=== PATIENT | male | born 1985 | race African-American/Black ===

== ENCOUNTER 2020-11-20 16:33 | Inpatient (IN) | payer OTHER ==
[~2020-11-20] VITALS: Ht 162.6 cm; Wt 82.3 kg
[2020-11-20] MEDS ORDERED: LOSARTAN 50MG TABLET PO ONE (17:05)
[2020-11-20] MEDS ORDERED: MORPHINE 4 MG/ML 1ML VIAL/SYRINGE (J2270) IV PRN (17:05)
[2020-11-20] MEDS ORDERED: LOSA25TA14 PO (17:59)
[2020-11-20 18:20] LABS: BASO # 0.1 10^3/uL (0.0-0.2); BASO % 0.7 % (0.0-1.0); EOS # 0.3 10^3/uL (0.0-0.5); EOS % 3.6 % (0.0-3.0); HEMATOCRIT 41.3 % (42.0-52.0); HEMOGLOBIN 13.6 g/dl (13.5-17.5); LYMPH # 2.7 10^3/uL (1.5-5.0); LYMPH % 39.2 % (24.0-44.0); MEAN CORPUSCULAR HEMOGLOBIN 29.9 pg (27.0-33.0); MEAN CORPUSCULAR HGB CONC 32.9 g/dl (32.0-36.5); MEAN CORPUSCULAR VOLUME 90.8 fl (80.0-96.0); MONO # 0.6 10^3/uL (0.0-0.8); MONO % 8.2 % (2.0-8.0); NEUTROPHILS # 3.3 10^3/uL (1.5-8.5); NEUTROPHILS % 47.9 % (36.0-66.0); PLATELET COUNT, AUTOMATED 240 10^3/uL (150-450); RED BLOOD COUNT 4.55 10^6/uL (4.30-6.10); WHITE BLOOD COUNT 6.9 10^3/uL (4.0-10.0)
[2020-11-20 19:02] LABS: ALBUMIN 2.7 GM/DL (3.2-5.2); ALT/SGPT 58 U/L (12-78); BILIRUBIN,DIRECT 0.1 MG/DL (0.0-0.2); BILIRUBIN,TOTAL 0.6 MG/DL (0.2-1.0); BLOOD UREA NITROGEN 11 MG/DL (7-18); CALCIUM LEVEL 6.8 MG/DL (8.5-10.1); CARBON DIOXIDE LEVEL 24 MEQ/L (21-32); CHLORIDE LEVEL 117 MEQ/L (98-107); CK-MB VALUE MASS < 1.0 NG/ML (<3.6); CPK CREATINE PHOSPHOKINASE 143 U/L (39-308); CREATININE FOR GFR 0.95 MG/DL (0.70-1.30); FREE T4 1.14 NG/DL (0.76-1.46); GLOMERULAR FILTRATION RATE > 60.0 (>60); GLUCOSE, FASTING 88 MG/DL (70-100); LIPASE 111 U/L (73-393); POTASSIUM SERUM 2.8 MEQ/L (3.5-5.1); SODIUM LEVEL 146 MEQ/L (136-145); THYROID STIMULATING HORMONE 0.566 uIU/ML (0.358-3.740); TOTAL PROTEIN 5.2 GM/DL (6.4-8.2); TROPONIN I < 0.02 NG/ML (< 0.10)
[2020-11-20] MEDS ORDERED: KCL 10MEQ/100ML SWI (KRUN) 10 MEQ in IV 1 EA IV ONE (19:05)
[2020-11-20] MEDS ORDERED: POTASSIUM CHLORIDE 10MEQ SR TABLET PO ONE (19:15)
[2020-11-20] MEDS ORDERED: ISOVUE-370 76% 100ML VIAL As Ordered ONE (19:25)
--- NOTE | 2020-11-20 20:38 | REPVR ---
PROCEDURE INFORMATION: Exam: CTA Chest With Contrast Exam date and time: 11/20/2020 7:38 PM Age: 35 years old Clinical indication: Pain; Angina pectoris; Additional info: Pleuritic chest pain TECHNIQUE: Imaging protocol: Computed tomographic angiography of the chest with contrast. 3D rendering (Not supervised by radiologist): MIP and/or 3D reconstructed images were created by the technologist. Radiation optimization: All CT scans at this facility use at least one of these dose optimization techniques: automated exposure control; mA and/or kV adjustment per patient size (includes targeted exams where dose is matched to clinical indication); or iterative reconstruction. Contrast material: ISOVUE 370; Contrast volume: 100 ml; Contrast route: INTRAVENOUS (IV); COMPARISON: No relevant prior studies available. FINDINGS: Pulmonary arteries: The main pulmonary artery measures 21 mm. No pulmonary embolism is identified. Aorta: The ascending thoracic aorta measures 32 mm. Lungs: Minimal dependent atelectasis in the lower lobes and lingula. Pleural spaces: Unremarkable. No pneumothorax. No pleural effusion. Heart: Unremarkable. No cardiomegaly. No pericardial effusion. Lymph nodes: Unremarkable. No enlarged lymph nodes. Liver: The liver attenuation is 36 Hounsfield units and the spleen is 81 Hounsfield units in the arterial phase. There is some fatty sparing adjacent to the gallbladder fossa. Bones/joints: Unremarkable. No acute fracture. Soft tissues: Unremarkable. IMPRESSION: 1. Probable fatty infiltration of the liver. 2. Otherwise negative CTA chest. No pulmonary embolism is identified. Electronically signed by: Taye Zuniga On 11/20/2020 20:38:23 PM
--- NOTE | 2020-11-20 20:43 | REPVR ---
PROCEDURE INFORMATION: Exam: CT Abdomen And Pelvis With Contrast Exam date and time: 11/20/2020 7:38 PM Age: 35 years old Clinical indication: Abdominal pain; Flank; Left; Additional info: L flank pain TECHNIQUE: Imaging protocol: Computed tomography of the abdomen and pelvis with contrast. Radiation optimization: All CT scans at this facility use at least one of these dose optimization techniques: automated exposure control; mA and/or kV adjustment per patient size (includes targeted exams where dose is matched to clinical indication); or iterative reconstruction. Contrast material: ISOVUE 370; Contrast volume: 100 ml; Contrast route: INTRAVENOUS (IV); COMPARISON: No relevant prior studies available. FINDINGS: Lungs: Minimal dependent atelectasis in the lower lobes and lingula. Liver: The liver attenuation is 42 Hounsfield units and the spleen is 121 Hounsfield units in the arterial phase. There is some fatty sparing adjacent to the gallbladder. Gallbladder and bile ducts: Normal. No calcified stones. No ductal dilation. Pancreas: Normal. No ductal dilation. Spleen: See "Liver" finding. Adrenal glands: Normal. No mass. Kidneys and ureters: Small nonobstructing left renal calculi. There are bilateral renal cysts measuring up to 2.2 cm on the left with a Hounsfield measurement of 16 consistent with simple cysts. No follow-up imaging is recommended. No ureteral calculi and no hydronephrosis. Stomach and bowel: Unremarkable. No obstruction. No mucosal thickening. Appendix: A normal appendix is seen. Intraperitoneal space: Unremarkable. No free air. No significant fluid collection. Vasculature: Unremarkable. No abdominal aortic aneurysm. Lymph nodes: Unremarkable. No enlarged lymph nodes. Urinary bladder: Unremarkable as visualized. Reproductive: Unremarkable as visualized. Bones/joints: Unremarkable. No acute fracture. Soft tissues: Unremarkable. IMPRESSION: 1. Fatty infiltration of the liver. 2. Small nonobstructing left renal calculi. No ureteral calculi are evident and there is no evidence of obstructive uropathy. 3. Otherwise negative CT abdomen/pelvis. COMMENTS: Consistent with the [employer]'s Incidental Findings Committee white paper (J Am Aissatou Radiol 2018): Any incidental renal lesion less than 1 cm or classified as too small to characterize, or any incidental cystic renal lesion characterized as simple-appearing, is likely benign. No follow-up imaging is recommended for these lesions per consensus recommendations based on imaging criteria. Electronically signed by: Taye Zuniga On 11/20/2020 20:42:42 PM
[2020-11-20] MEDS ORDERED: LABETALOL 100MG/20ML VIAL IV STA (21:03)
[2020-11-20] MEDS ORDERED: MOM 30ML SUSPENSION UDC PO PRN (21:25)
[2020-11-20] MEDS ORDERED: DICLOFENAC EPOLAMINE 1.3 % PATCH TOP PRN (21:25)
[2020-11-20] MEDS ORDERED: ACETAMINOPHEN TAB 650MG DOSE (2X325MG) PO PRN (21:25)
[2020-11-20] MEDS ORDERED: MAALOX 30 ML SUSP *UDC PO PRN (21:25)
--- NOTE | 2020-11-20 21:30 | HPEPDOC ---
[facility] Medical History & Physical Date of Admission Nov 20, 2020 Date of Service: Nov 20, 2020 Other Provider [facility] Attending Physician: ANABELA BIRCH MD History and Physical TIME OF SERVICE: 1020PM CHIEF COMPLAINT: flank pain HISTORY OF PRESENT ILLNESS: is a 35 yr old M who suddenly developed 9/10 in severity sharp mid-left upper back pain while walking; the pain is made worse with movement. He has never had this kind of pain before. He came to the ER bc he has a hx of uncontrolled HTN that is being managed by ; he thinks that he has had several tests to determine the cause of his uncontrolled HTN and is currently taking losartan, chlorthalidone and nifedipine. He was told in the past to go to the ER if he develops back pain. He has had transient dyspnea and PINA as well. He denies being under an undue amount of stress, denies drinking more coffee than usual lately (he drinks 1-3 cups daily) and denies taking NSAIDS. REVIEW OF SYSTEMS: 10-point review of systems negative except as listed in HPI PAST MEDICAL/ SURGICAL HISTORY: resistant HTN, DLP, fatty liver, class 1 obesity, resection of wisdom teeth FAMILY HISTORY: DM SOCIAL HISTORY: He is in the , , doesnt smoke, uses alcohol socially and doesnt use recreational drugs. ALLERGIES: Please see below. HOME MEDICATIONS: Please see below. PHYSICAL EXAMINATION: Vital Signs Date Time Temp Pulse Resp B/P (MAP) Pulse Ox O2 Delivery O2 Flow Rate FiO2 11/20/20 16:57 210/127 (154) 11/20/20 17:03 80 11/20/20 18:18 99 11/20/20 18:37 18 Room Air 11/20/20 18:44 98.7 GENERAL APPEARANCE: well-nourished and developed/ slightly anxious HEENT: EOMI / MMM&P CARDIOVASCULAR: RRR/NMRG / no BLE edema LUNGS: CTAB on RA ABDOMEN: contour convex/ soft & NT w palpation / no abdominal bruit audible MUSCULOSKELETAL: NCAT / MARIA x 4 extremities INTEGUMENT: he is not diaphoretic NEUROLOGICAL: / speech not dysarthric PSYCHIATRIC: A&O x 3 / able to understand and follow all commands LABORATORY DATA: IMAGING: CT abd/pelvis IMPRESSION: 1. Fatty infiltration of the liver. 2. Small nonobstructing left renal calculi. No ureteral calculi are evident and there is no evidence of obstructive uropathy. 3. Otherwise negative CT abdomen/pelvis. CTA chest IMPRESSION: 1. Probable fatty infiltration of the liver. 2. Otherwise negative CTA chest. No pulmonary embolism is identified. MICROBIOLOGY: Respiratory panel negative EKG: T wave inversions in the lateral leads ASSESSMENT: is a 35 yr old w a hx of resistant HTN, DLP and obesity who is admitted for management of HTN Urgency, Hypokalemia. PLAN: 1 HTN Urgency -At his baseline he has resistant HTN -Associated symptoms include back pain ? and PINA -Because he also has hypokalemia I suspect he may have Conns syndrome / hyperaldosteronism. -The T wave inversions in the ECG may be due to accelerated HTN -His BP improved to 168/98 after he received 50mg of losartan & 10mg of IV Labetalol Plan: admit to medical floor/ keep on bed rest for now to avoid excessive environmental stimuli / low salt diet / hold Nifedipine and Losartan prior to checking serum plasma aldosterone:renin ratio & start PRN hydralazine (if the aldosterone to renin ratio is abnormal the day time team may consider starting eplerenone (K sparing diuretic which will also help prevent hypokalemia in the future) / we will also check plasma free metanephrines to screen for pheochromocytoma / he can f/u with his PCP for referral for a sleep study / will request records from office prior to ordering a renal duplex 2 Mid-left upper back pain -Possibly 2/2 hypokalemia vs accelerate HTN vs MSK pain -CTA of the chest was neg for dissection Plan: replete K / treat HTN / acetaminophen for pain 3 Hypokalemia -The combination of hypertension with increased renin and aldosterone may point towards a reninoma or renal artery stenosis as the cause of the hypokalemia -The combination of hypertension with low low renin & high aldosterone may point towards primary hyperaldosteronism or secondary hyperaldosteronism as the cause of the hypokalemia Plan: replete K / f/u serum plasma aldosterone:renin ratio 4 Hypomagnesemia 2/2 hypokalemia Plan: replete Mag 5 DLP Plan: atorvastatin 6 Class 1 obesity -complicates care Plan: check A1C to screen for DM DVT px w NAKIA/SCDs Disposition: home after more than 2 midnights stay LATE ENTRY 420AM #SERA I suspect the acute elevation in his BP is a due to the accelerated HTN Plan: we will continue to hold the ARB and HTCZ/ start IVF/ f/u Ulytes and check a renal US Home Medications Scheduled Chlorthalidone (Chlorthalidone) 25 Mg Tablet, 25 MG PO DAILY Losartan Potassium (Losartan Potassium) 100 Mg Tablet, 100 MG PO QHS Nifedipine (Procardia Xl) 30 Mg Tab.er.24, 30 MG PO DAILY Rosuvastatin Calcium (Rosuvastatin Calcium) 10 Mg Tablet, 10 MG PO DAILY Allergies Coded Allergies: No Known Allergies (Unverified , 11/20/20) A-FIB/CHADSVASC A-FIB History Current/History of A-Fib/PAF?: No Current PO Anticoag Therapy: No ANABELA BIRCH MD Nov 20, 2020 21:30
[2020-11-20 21:49] LABS: MAGNESIUM LEVEL 1.4 MG/DL (1.8-2.4)
--- NOTE | 2020-11-20 22:12 | ECGEPIP ---
[facility] - ED Test Date: 2020-11-20 Pat Name: RAN HOPKINS Department: Room: - Gender: Male [employer]ing Machine Operator: COLTON : 1985 Requested By: CATALINO Butler Order Number: [id number] Reading MD: Norberto Yeung Measurements Intervals [place] Rate: 72 P: 31 AR: 148 QRS: 41 QRSD: 74 T: 160 QT: 364 QTc: 398 Interpretive Statements Normal sinus rhythm T wave abnormality, consider lateral ischemia Comparison tracing not on file Electronically Signed on 11-20-2020 22:12:27 EDT by Norberto Yeung
[2020-11-20] MEDS ORDERED: ROSU10TA6 PO (23:11)
[2020-11-20] MEDS ORDERED: LOSA100T50 PO (23:11)
[2020-11-20] MEDS ORDERED: CHLO25TA PO (23:11)
[2020-11-20] MEDS ORDERED: PROC30TA PO (23:11)
[2020-11-20] MEDS ORDERED: HOME MED LIST COMPLETE! XX SCH (23:15)
[2020-11-20 23:27] LABS: RSV AMPLIFICATION NEGATIVE (NEGATIVE)
[2020-11-21] MEDS ORDERED: **hydrALAZINE** 10 MG TAB PO PRN (00:10)
[2020-11-21 00:34] VITALS: BP 158/98
[2020-11-21] MEDS ORDERED: MAG SULF 1GM/100ML (MAG RUN) 1 GM in IV 1 EA IV ONE (03:15)
[2020-11-21] MEDS ORDERED: POTASSIUM CHLORIDE 10MEQ SR TABLET PO ONE ×2 (03:15→04:15)
[2020-11-21 03:55] LABS: HEMATOCRIT 39.2 % (42.0-52.0); HEMOGLOBIN 13.1 g/dl (13.5-17.5); MEAN CORPUSCULAR HGB CONC 33.4 g/dl (32.0-36.5); MEAN CORPUSCULAR VOLUME 89.9 fl (80.0-96.0); PLATELET COUNT, AUTOMATED 224 10^3/uL (150-450); RED BLOOD COUNT 4.36 10^6/uL (4.30-6.10); WHITE BLOOD COUNT 7.4 10^3/uL (4.0-10.0)
[2020-11-21 04:07] LABS: HEMOGLOBIN A1c 6.2 %
[2020-11-21 04:10] LABS: BLOOD UREA NITROGEN 13 MG/DL (7-18); CALCIUM LEVEL 8.4 MG/DL (8.5-10.1); CARBON DIOXIDE LEVEL 31 MEQ/L (21-32); CHLORIDE LEVEL 103 MEQ/L (98-107); CREATININE FOR GFR 1.55 MG/DL (0.70-1.30); GLOMERULAR FILTRATION RATE > 60.0 (>60); GLUCOSE, FASTING 155 MG/DL (70-100); POTASSIUM SERUM 3.9 MEQ/L (3.5-5.1); SODIUM LEVEL 138 MEQ/L (136-145)
[2020-11-21] MEDS ORDERED: NS 1,000 ML IV SCH (04:20)
[2020-11-21 06:00] VITALS: BP 162/96
[2020-11-21 06:13] LABS: BLOOD UREA NITROGEN 11 MG/DL (7-18); CALCIUM LEVEL 8.7 MG/DL (8.5-10.1); CARBON DIOXIDE LEVEL 28 MEQ/L (21-32); CHLORIDE LEVEL 103 MEQ/L (98-107); CREATININE FOR GFR 1.39 MG/DL (0.70-1.30); GLOMERULAR FILTRATION RATE > 60.0 (>60); GLUCOSE, FASTING 146 MG/DL (70-100); SODIUM LEVEL 140 MEQ/L (136-145)
[2020-11-21] MEDS ORDERED: ENOXAPARIN 40MG/0.4ML SYRINGE (J1650 PER 10MG) SC SCH (09:00)
--- NOTE | 2020-11-21 09:47 | REP ---
INDICATION: benito COMPARISON: None TECHNIQUE: Real time pablo scale ultrasound examination using curved array transducer. FINDINGS: Right kidney measures 9.1 x 5.3 x 3.2 cm and appears normal in reniform shape without hydronephrosis, nephrolithiasis, cystic or renal mass lesion. Left kidney measures 11.1 x 4.4 x 5.6 cm and appears normal in reniform shape with 9 mm midpole simple cyst and 2.5 cm septated lower pole cyst. No hydronephrosis, nephrolithiasis or renal mass lesion. Bladder is unremarkable. Prostate gland measures 3.6 x 2.1 x 3.5 cm. Incidental hepatosteatosis noted. IMPRESSION: 1. Left kidney includes simple and septated cysts. There is no evidence for hydronephrosis of either kidney and the bladder appears normal. 2. Incidental findings as above. <Electronically signed by Jet Venegas > 11/21/20 0943
[2020-11-21] MEDS: ROSUVASTATIN 10 MG TAB (CRESTOR) PO SCH (09:55)
[2020-11-21] MEDS: NIFEdipine 30 MG XL TAB PO SCH (10:02)
[2020-11-21] MEDS: NS 1,000 ML IV SCH ×2 (10:35→23:55)
[2020-11-21] MEDS ORDERED: **hydrALAZINE HCL** 25 MG TAB PO PRN (10:45)
[2020-11-21 11:14] VITALS: BP 184/112
[2020-11-21 13:09] LABS: CREATININE,RANDOM URINE 77.8 MG/DL; POTASSIUM RANDOM URINE 41.9 MEQ/L; SODIUM,RANDOM URINE 90 MEQ/L; TOTAL PROTEIN,RANDOM URINE < 5.0 MG/DL (0.0-12.0); UREA NITROGEN RANDOM URINE 343 MG/DL
[2020-11-21 14:00] VITALS: BP 198/108
[2020-11-21] MEDS: HEPARIN SOD (PORCINE) 5000UNITS/ML 1ML VIAL/SYRINGE SQ SCH ×2 (14:06→22:29)
--- NOTE | 2020-11-21 15:22 | IPNPDOC ---
Date Seen The patient was seen on 11/21/20. Progress Note SUBJECTIVE: Patient is a 35-year-old -Iraqi male with hypertension urgency/resistant hypertension who presented to the ED 11/20/2020 with 9 out of 10 mid left upper back pain while walking, along with headache and dyspnea. Said experienced a sharp localized pain around and above left kidney after swinging his back over a chair. His current outpatient medication regimen is losartan, chlorthalidone, nifedipine. His BP on arrival was 210/127 a pulse of 80. The ED he was given m orphine for pain control, and losartan and labetalol and his blood pressure by 2330 was 165/98. Day patient was examined at bedside. Reports that his back pain is now a 1-2 out of 10 with 10 being the worst pain. He also reports resolution of headache. Further family history was gained from patient. He says his mom was on dialysis and had a history of diabetes 2 and hypertension. He also states that his brother suffered kidney failure/kidney issues and is now blind. He does not know the etiology of his brothers kidney failure. OBJECTIVE PHYSICAL EXAMINATION: VITAL SIGNS: Please see below. GENERAL: 35-year-old -Iraqi male, resting in bed, no acute distress HEENT: Head normocephalic atraumatic CARDIOVASCULAR: Regular rate and rhythm, no murmurs, rubs, no gallop. RESPIRATORY: Clear to auscultation bilaterally, no wheezes, no rhonchi, no crackles. ABDOMINAL: Normoactive bowel sounds, nontender to palpation EXTREMITIES: 2+ radial pulses and dorsalis pedis pulses bilaterally; no edema appreciated in the lower extremities NEUROLOGICAL: No deficits appreciated LABORATORY DATA, IMAGING STUDIES, MICROBIOLOGY: Please see below. CT angio chest: Echocardiogram: EKG in ER revealed normal sinus rhythm; T wave abnormality, consider lateral ischemia; comparison tracing on file. DVT prophylaxis ordered?: Changed to heparin ASSESSMENT AND PLAN: This is a 35-year-old good -Iraqi male that presented to the ED on 11/20/2020 with hypertensive urgency and severe back pain beginning yesterday afternoon. He has a history of resistant hypertension and is on 3 medications outpatient (losartan, chlorthalidone, nifedipine). Is also found to be hypokalemic and labs have been ordered to determine whether that is due to the medications you are taking or an underlying endocrine pathology. PROBLEMS: Renal Colic/back pain -Continue IV fluids and pain management -Diclofenac patch Hypokalemia -Could be either due to medications patient is taking that alter the renal angiotensin aldosterone system or an endocrine pathology (like Conn syndrome) -Pending lab results such as renin activity, plasma metanephrine and normetanephrine Acute kidney injury -Conn syndrome versus medications. -Hold nephrotoxic medications and ones at all to the RAAS activity -Hold losartan (was given 1 dose in the ER) and chlorthalidone -Continue nifedipine 30 mg p.o. daily -Continue hydralazine 25 mg every 8 hours as needed for BP greater than 160/100 Renal cyst with septations -Renal US showed 2.5cm septated lower pole cyst in left kidney -CT abdomen pelvis read did not note the same septations evident on ultrasound -Discussed findings with Dr. Radiologist Dr. Hamm who took a look at the CT imaging. Advised that there are septations on the CT but they are very subtle and barely perceptible. He would not recommend a dedicated renal CT or any further imaging at this time. Hyperlipidemia -Continue rosuvastatin DVT prophylaxis -Heparin VS, I&O, 24H, Fishbone Vital Signs/I&O Vital Signs Date Time Temp Pulse Resp B/P (MAP) Pulse Ox O2 Delivery O2 Flow Rate FiO2 11/21/20 11:42 184/112 11/21/20 11:14 74 11/21/20 06:00 97.8 18 97 Room Air I&O- Last 24 Hours up to 6 AM0 11/21/20 06:00 Intake Total 100 ml Output Total 0 ml Balance 100 ml Laboratory Data 24H LABS Laboratory Tests 2 11/20/20 18:06: Urine Color YELLOW, Urine Appearance CLEAR, Urine pH 7.0, Urine Specific [place] 1.017, Urine Protein 1+H, Urine Glucose (UA) 1+H, Urine Ketones NEGATIVE, Urine Blood NEGATIVE, Urine Nitrite NEGATIVE, Urine Bilirubin NEGATIVE, Urine Urobilinogen 4.0H, Urine Leukocyte Esterase NEGATIVE, Urine WBC (Auto) 0, Urine RBC (Auto) 0, Urine Hyaline Casts (Auto) 0, Urine Bacteria (Auto) NEGATIVE, Ur ine Squamous Epithelial Cells 0, Urine Mucus (Auto) SMALL, Urine Sperm (Auto) 11/20/20 18:10: Immature Granulocyte % (Auto) 0.4, Neutrophils (%) (Auto) 47.9, Lymphocytes (%) (Auto) 39.2, Monocytes (%) (Auto) 8.2H, Eosinophils (%) (Auto) 3.6H, Basophils (%) (Auto) 0.7, Neutrophils # (Auto) 3.3, Lymphocytes # (Auto) 2.7, Monocytes # (Auto) 0.6, Eosinophils # (Auto) 0.3, Basophils # (Auto) 0.1, Nucleated Red Blood Cells % (auto) 0.0, Anion Gap 5L, Glomerular Filtration Rate > 60.0, Calcium Level 6.8L, Magnesium Level 1.4L, Total Bilirubin 0.6, Direct Bilirubin 0.1, Aspartate Amino Transf (AST/SGOT) 19, Alanine Aminotransferase (ALT/SGPT) 58, Alkaline Phosphatase 45, Total Creatine Kinase 143, Creatine Kinase MB < 1.0, Creatine Kinase MB Relative Index 0.70, Troponin I < 0.02, Total Protein 5.2L, Albumin 2.7L, Albumin/Globulin Ratio 1.1, Lipase 111, Thyroid Stimulating Hormone (TSH) 0.566, Free Thyroxine 1.14 11/20/20 22:36: Coronavirus (COVID-19)(PCR) NEGATIVE, Influenza Type A (RT-PCR) NEGATIVE, Influenza Type B (RT-PCR) NEGATIVE, Respiratory Syncytial Virus (PCR) NEGATIVE 11/21/20 03:33: Nucleated Red Blood Cells % (auto) 0.0, Anion Gap 4L, Glomerular Filtration Rate > 60.0, Calcium Level 8.4#L, Estimated Mean Plasma Glucose 131H, Hemoglobin A1c 6.2 11/21/20 05:29: Anion Gap 9, Glomerular Filtration Rate > 60.0, Calcium Level 8.7 11/21/20 12:20: Urine Random Creatinine 77.8, Urine Random Total Protein < 5.0, Urine Random Sodium 90, Urine Random Potassium 41.9, Urine Random Urea Nitrogen 343 CBC/BMP Laboratory Tests 11/20/20 18:10 11/21/20 03:33 11/21/20 05:29 GME ATTESTATION GME ATTESTATION My faculty preceptor for this patient encounter was physically present during the encounter and was fully available. All aspects of the patient interview, examination, medical decision making process, and medical care plan development were reviewed and approved by the faculty preceptor. The faculty preceptor is aware and concurs with the plan as stated in the body of this note and will attest to such by his/her cosignature. Castro Harrison DO Nov 21, 2020 15:22
[2020-11-21] MEDS: **hydrALAZINE HCL** 25 MG TAB PO PRN ×2 (16:24→22:29)
[2020-11-21 18:02] VITALS: BP 170/112
[2020-11-21] MEDS ORDERED: LABETALOL 100MG TAB PO ONE (20:00)
[2020-11-21 21:09] VITALS: BP 164/110
[2020-11-22 02:06] VITALS: BP 160/110
[2020-11-22] MEDS: NS 1,000 ML IV SCH (05:53)
[2020-11-22] MEDS: HEPARIN SOD (PORCINE) 5000UNITS/ML 1ML VIAL/SYRINGE SQ SCH ×3 (05:54→20:35)
[2020-11-22 06:00] VITALS: BP 152/100
--- NOTE | 2020-11-22 09:34 | REP ---
INDICATION: resistant hypertension r/o renal artery stenosis COMPARISON: In correlation with 11/21/2020 examination TECHNIQUE: Real time pablo scale ultrasound examination using curved array transducer followed by color Doppler evaluation of the renal vasculature. FINDINGS: Please refer to 11/21/2020 examination for morphologic sonographic evaluation of the kidneys. Color Doppler evaluation. Peak aortic velocity: 41 centimeters/second RIGHT KIDNEY Renal arterial velocity: 97 centimeters/second Renal-aortic ratio: 2.4 Intrarenal resistive indices: 0.54-0.56 Intrarenal acceleration times: 0.036-0.055 LEFT KIDNEY Renal arterial velocity: 77 centimeters/second Renal-aortic ratio: 1.9 Intrarenal resistive indices: 0.51-0.53 Intrarenal acceleration times: 0.028-0.045 IMPRESSION: 1. Doppler interegation without sonographic evidence for renal arterial stenosis. <Electronically signed by Jet Venegas > 11/22/20 1594
[2020-11-22] MEDS: NIFEdipine 30 MG XL TAB PO SCH (09:58)
[2020-11-22] MEDS: LABETALOL 100MG TAB PO SCH ×2 (09:58→20:35)
[2020-11-22] MEDS: ROSUVASTATIN 10 MG TAB (CRESTOR) PO SCH (09:58)
[2020-11-22 10:00] VITALS: BP 178/100
[2020-11-22 10:27] LABS: BASO # 0.1 10^3/uL (0.0-0.2); BASO % 0.7 % (0.0-1.0); EOS # 0.3 10^3/uL (0.0-0.5); EOS % 3.6 % (0.0-3.0); HEMOGLOBIN 14.2 g/dl (13.5-17.5); LYMPH # 2.8 10^3/uL (1.5-5.0); LYMPH % 39.6 % (24.0-44.0); MEAN CORPUSCULAR HEMOGLOBIN 30.9 pg (27.0-33.0); MEAN CORPUSCULAR HGB CONC 33.8 g/dl (32.0-36.5); MEAN CORPUSCULAR VOLUME 91.3 fl (80.0-96.0); MONO # 0.3 10^3/uL (0.0-0.8); MONO % 4.3 % (2.0-8.0); NEUTROPHILS # 3.6 10^3/uL (1.5-8.5); NEUTROPHILS % 51.4 % (36.0-66.0); PLATELET COUNT, AUTOMATED 243 10^3/uL (150-450)
[2020-11-22 10:50] LABS: BLOOD UREA NITROGEN 9 MG/DL (7-18); CARBON DIOXIDE LEVEL 27 MEQ/L (21-32); CHLORIDE LEVEL 105 MEQ/L (98-107); CREATININE FOR GFR 1.36 MG/DL (0.70-1.30); GLOMERULAR FILTRATION RATE > 60.0 (>60); GLUCOSE, FASTING 191 MG/DL (70-100); SODIUM LEVEL 137 MEQ/L (136-145)
[2020-11-22] MEDS ORDERED: SPIRONOLACTONE 12.5MG PER 1/2 TABLET PO ONE (12:00)
[2020-11-22 14:00] VITALS: BP 178/110
[2020-11-22] MEDS: **hydrALAZINE HCL** 25 MG TAB PO PRN (14:10)
--- NOTE | 2020-11-22 16:12 | IPNPDOC ---
Date Seen The patient was seen on 11/22/20. Progress Note SUBJECTIVE: Patient is a 35-year-old -Serbian male with hypertensive urgency/resistant hypertension who presented to the ED 11/20/2020 with severe upper left back pain and blood pressure reading 210/127 in the ED. Patient's outpatient regimen of losartan and chlorthalidone were discontinued and nifedipine was continued. Hydralazine 25 mg every 8 hours was added for blood pressure control greater than 160/100. OBJECTIVE PHYSICAL EXAMINATION: VITAL SIGNS: Please see below. GENERAL: 35-year-old -Serbian male, lying in bed, in no acute distress HEENT: Head normocephalic atraumatic CARDIOVASCULAR: Regular rate and rhythm no murmurs, no rubs, no gallops RESPIRATORY: Clear to auscultation bilaterally, no wheezes, no crackles, no rhonchi ABDOMINAL: Normoactive bowel sounds in all 4 quadrants, nontender to palpation, no rebound tenderness or guarding EXTREMITIES: 2+ dorsalis pedis and radial pulses bilaterally NEUROLOGICAL: No focal deficits appreciated LABORATORY DATA, IMAGING STUDIES, MICROBIOLOGY: Please see below. Imaging Renal Doppler ultrasound 11/22/2020: Negative sonographic evidence of renal artery stenosis Renal ultrasound 11/21/2020: 1. Left kidney includes simple and septated cysts. There is no evidence for hydronephrosis of either kidney and the bladder appears normal. 2. Incidental findings as above. CT angio chest 11/20/2020: 1. Probable fatty infiltration of the liver. 2. Otherwise negative CTA chest. No pulmonary embolism is identified. Abdomen pelvis CT 11/20/2020: 1. Fatty infiltration of the liver. 2. Small nonobstructing left renal calculi. No ureteral calculi are evident and there is no evidence of obstructive uropathy. 3. Otherwise negative CT abdomen/pelvis. Echocardiogram: EKG in ER revealed normal sinus rhythm; T wave abnormality, consider lateral ischemia; comparison tracing on file. DVT prophylaxis ordered?: Changed to heparin ASSESSMENT AND PLAN: This is a 35-year-old -Serbian male with resistant hypertension/hypertensive urgency presented to the ED with severe back pain. PROBLEMS: Renal Colic/back pain -Continue IV fluids and pain management -Diclofenac patch Hypokalemia -Could be either due to medications patient is taking that alter the renal angiotensin aldosterone system or an endocrine pathology (like Conn syndrome) -Calcium has now normalized -Pending lab results such as renin activity, plasma metanephrine and normetanephrine Acute kidney injury -Conn syndrome versus medications. -Hold nephrotoxic medications and ones at all to the RAAS activity -Hold losartan (was given 1 dose in the ER) and chlorthalidone -Continue nifedipine 30 mg p.o. daily -Continue hydralazine 25 mg every 8 hours as needed for BP greater than 160/100 Hypertension -Spironolactone 12.5mg added for further management -May increase dose to 25mg tomorrow pending renal function Renal cyst with septations -Renal US showed 2.5cm septated lower pole cyst in left kidney -CT abdomen pelvis read did not note the same septations evident on ultrasound -Discussed findings with Dr. Radiologist Dr. Hamm who took a look at the CT imaging. Advised that there are septations on the CT but they are very subtle and barely perceptible. He would not recommend a dedicated renal CT or any further imaging at this time. Hyperlipidemia -Continue rosuvastatin DVT prophylaxis -Heparin VS, I&O, 24H, Fishbone Vital Signs/I&O Vital Signs Date Time Temp Pulse Resp B/P (MAP) Pulse Ox O2 Delivery O2 Flow Rate FiO2 11/22/20 14:10 168/102 11/22/20 14:00 97.7 75 21 97 Room Air I&O- Last 24 Hours up to 6 AM 11/22/20 06:00 Intake Total 2520 ml Output Total 3875 ml Balance -1355 ml Laboratory Data 24H LABS Laboratory Tests 2 11/22/20 09:44: Immature Granulocyte % (Auto) 0.4, Neutrophils (%) (Auto) 51.4, Lymphocytes (%) (Auto) 39.6, Monocytes (%) (Auto) 4.3, Eosinophils (%) (Auto) 3.6H, Basophils (%) (Auto) 0.7, Neutrophils # (Auto) 3.6, Lymphocytes # (Auto) 2.8, Monocytes # (Auto) 0.3, Eosinophils # (Auto) 0.3, Basophils # (Auto) 0.1, Nucleated Red Blood Cells % (auto) 0.0, Anion Gap 5L, Glomerular Filtration Rate > 60.0, Calcium Level 9.0 CBC/BMP Laboratory Tests 11/22/20 09:44 GME ATTESTATION GME ATTESTATION My faculty preceptor for this patient encounter was physically present during the encounter and was fully available. All aspects of the patient interview, examination, medical decision making process, and medical care plan development were reviewed and approved by the faculty preceptor. The faculty preceptor is aware and concurs with the plan as stated in the body of this note and will attest to such by his/her cosignature. Castro Harrison DO Nov 22, 2020 16:12
[2020-11-22 18:44] VITALS: BP 182/106
[2020-11-22] MEDS ORDERED: LABETALOL 100MG TAB PO ONE (18:50)
[2020-11-22 22:13] VITALS: BP 158/98
[2020-11-23] MEDS: HEPARIN SOD (PORCINE) 5000UNITS/ML 1ML VIAL/SYRINGE SQ SCH (05:24)
[2020-11-23 05:54] VITALS: BP 158/120
[2020-11-23 08:19] LABS: BASO % 0.7 % (0.0-1.0); EOS # 0.3 10^3/uL (0.0-0.5); EOS % 4.7 % (0.0-3.0); HEMOGLOBIN 14.4 g/dl (13.5-17.5); LYMPH # 2.3 10^3/uL (1.5-5.0); LYMPH % 36.9 % (24.0-44.0); MEAN CORPUSCULAR HEMOGLOBIN 29.7 pg (27.0-33.0); MEAN CORPUSCULAR HGB CONC 32.7 g/dl (32.0-36.5); MEAN CORPUSCULAR VOLUME 90.7 fl (80.0-96.0); MONO # 0.5 10^3/uL (0.0-0.8); MONO % 8.5 % (2.0-8.0); NEUTROPHILS % 48.7 % (36.0-66.0); PLATELET COUNT, AUTOMATED 223 10^3/uL (150-450); RED BLOOD COUNT 4.85 10^6/uL (4.30-6.10); WHITE BLOOD COUNT 6.2 10^3/uL (4.0-10.0)
[2020-11-23 08:38] LABS: BLOOD UREA NITROGEN 11 MG/DL (7-18); CALCIUM LEVEL 9.1 MG/DL (8.5-10.1); CARBON DIOXIDE LEVEL 26 MEQ/L (21-32); CHLORIDE LEVEL 105 MEQ/L (98-107); CREATININE FOR GFR 1.43 MG/DL (0.70-1.30); GLOMERULAR FILTRATION RATE > 60.0 (>60); GLUCOSE, FASTING 129 MG/DL (70-100); MAGNESIUM LEVEL 1.9 MG/DL (1.8-2.4); POTASSIUM SERUM 3.9 MEQ/L (3.5-5.1); SODIUM LEVEL 136 MEQ/L (136-145)
[2020-11-23] MEDS: ROSUVASTATIN 10 MG TAB (CRESTOR) PO SCH (08:40)
[2020-11-23 08:41] VITALS: BP 154/110
[2020-11-23] MEDS: LABETALOL 100MG TAB PO SCH (08:41)
[2020-11-23] MEDS: NIFEdipine 30 MG XL TAB PO SCH (08:41)
[2020-11-23] MEDS ORDERED: SODIUM CHLORIDE NASAL 0.65% SPRAY BTL (OCEAN) PRN (08:50)
[2020-11-23] MEDS ORDERED: SPIRONOLACTONE 25 MG TAB PO SCH (09:00)
[2020-11-23 10:00] VITALS: BP 156/110
[2020-11-23] MEDS ORDERED: MAG SULF 1GM/100ML (MAG RUN) 1 GM in IV 1 EA IV ONE (10:00)
[2020-11-23] MEDS ORDERED: ALDA25TA2 PO (11:42)
[2020-11-23] MEDS ORDERED: HYDR100T PO (11:42)
--- NOTE | 2020-11-23 11:47 | DS.PDOC ---
Discharge Summary General Date of Admission Nov 20, 2020 at 21:24 Date of Discharge Nov 23, 2020 Attending Physician: KRISTI CHRISTIANSON MD Discharge Summary PROCEDURES PERFORMED DURING STAY: [None]. ADMITTING DIAGNOSES: 1. Hypertensive urgency/resistant hypertension 2. Mid left upper back pain 3. Acute kidney injury 4. Hypokalemia 5. Hypomagnesemia 6. Dyslipidemia 7. Class I obesity DISCHARGE DIAGNOSES: 1. Renal colic/back pain 2. Hypokalemia 3. Acute kidney injury 4. Renal cyst with septations 5. Hyperlipidemia COMPLICATIONS/CHIEF COMPLAINT: Martin,Pneumonia,Sepsis. HISTORY OF PRESENT ILLNESS: Patient presented to the ED after over 11/20/2020 after experiencing sudden, sharp, 9 out of 10, in severity, mid left upper back pain, after swinging back pack onto a chair, along with headache and dyspnea. Pain was localized about the left kidney. Currently he is being treated for resistant hypertension by a Dr. Francis. His BP on arrival was 210/127. He was given morphine for pain control and losartan labetalol in the ED. HOSPITAL COURSE: 11/20/2020: Patient presented to the ED after experiencing sudden sharp back pain, headache, dyspnea. Has a history of resistant hypertension and was being managed on losartan, chlorthalidone, nifedipine outpatient. On syndrome/primary hyperaldosteronism was suspected and appropriate labs were ordered. Patient was also given labetalol and hydralazine added as needed for further blood pressure management. He was also discovered to have hypokalemia and hypomagnesia and subsequently repleted. He was admitted into inpatient service for further care and evaluation. 11/21/2020: Nephrotoxic medications were held due to effect on RAAS activity. Losartan chlorthalidone were discontinued. Patient continued on amphetamine 30 mg and hydralazine 25 mg every 8 hours as needed. Renal ultrasound showed septated cyst in left kidney that was not corroborated on CT imaging. Dr. Hamm with radiology was consulted and advised that the septations on the CT were very subtle and very barely perceptible and did not advise further imaging to evaluate. Renal ultrasound also showed no evidence of hydronephrosis and no evidence of renal artery stenosis. Spironolactone 12.5 mg was added for further management. 11/22/2020: This patient came to [facility] with hypertensive urgency with hypokalemia and hypernatremia and resistant hypertension. 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 Given presence mild MARTIN, the decision has been mad to start the patient on a low dose of Spironolactone. If the etiology is determined to be Conn Syndrome, the dose of Spironolactone will need to be increased. His creatinine has been stable within last 48hours. Given that, very close fo llow-up advised and will need a BNP in next 3 days and monitoring of pending labs, and have PCP optimize medication regime. Currently, he is being managed on Hydralazine 50 mg TID, Spironolactone 12.5 QD, and NIfedipine 30mg QD. From a preliminary standpoint, this is the best medication combination that can be given at this time, but re-evaluation will be needed when clinical picture becomes clearer. The relevant, pending lab work is estimated to take 3-4 days to come back and patient has received maximal benefit from stay. Patients last creatinine is 1.43 (baseline around 1.00) and a renal Doppler study showed no evidence of renal artery stenosis. Abdomen/pelvis CT showed normal adrenal glands as well. It cannot be stressed enough that Mr. Pulido will need close follow-up with PCP to get BNP after beginning spironolactone, evaluate results of currently pending labs, and adjusting blood pressure medication regimen as needed. DISCHARGE MEDICATIONS: Please see below. ALLERGIES: Please see below. PHYSICAL EXAMINATION ON DISCHARGE: VITAL SIGNS: Please see below. GENERAL: 35-year-old, -Thai male, lying in bed, no acute distress HEENT: Head normocephalic atraumatic, eyes EOMI CARDIOVASCULAR EXAMINATION: Regular rate and rhythm, no murmurs, rubs, no gallop RESPIRATORY EXAMINATION: Clear to auscultation bilaterally, no wheezes, no rhonchi, no crackles ABDOMINAL EXAMINATION: Normoactive bowel sounds in all quadrants, nontender to palpation, no rebound tenderness or guarding EXTREMITIES: 2+ radial pulses and 2+ dorsalis pedis pulses present, no lower extremity edema appreciated NEUROLOGICAL EXAMINATION: No focal deficits appreciated. LABORATORY DATA: Please see below. IMAGING: Renal Doppler study ultrasound 11/22/2020: 1. Doppler interegation without sonographic evidence for renal arterial stenosis. Renal ultrasound 11/21/2020: 1. Left kidney includes simple and septated cysts. There is no evidence for hydronephrosis of either kidney and the bladder appears normal. 2. Incidental findings as above. CT angio chest 11/20/2020: 1. Probable fatty infiltration of the liver. 2. Otherwise negative CTA chest. No pulmonary embolism is identified. Abdomen pelvis CT 11/20/2020: 1. Fatty infiltration of the liver. 2. Small nonobstructing left renal calculi. No ureteral calculi are evident and there is no evidence of obstructive uropathy. 3. Otherwise negative CT abdomen/pelvis. PROGNOSIS: Stable ACTIVITY: [As tolerated]. DIET: Low-sodium diet DISPOSITION: Home DISCHARGE INSTRUCTIONS AND ITEMS TO FOLLOW-UP ON OUTPATIENT: Please be compliant with all of your blood pressure medications including nifedipine 30 mg p.o. daily, hydralazine 50 mg p.o. 3 times daily. Aldactone 12.5 mg daily. Please follow-up with your primary care doctor within 3 days of hospital discharge to follow-up on a BMP Please follow-up with your primary care doctor on important labs that are still pending from this inpatient hospitalization Please be compliant with all your other home medications If your symptoms present again and/or worsen please present back to the nearest ER. DISCHARGE CONDITION: [Stable]. TIME SPENT ON DISCHARGE: 35 minutes. Vital Signs/I&Os Vital Signs Date Time Temp Pulse Resp B/P (MAP) Pulse Ox O2 Delivery O2 Flow Rate FiO2 11/23/20 08:41 154/110 11/23/20 05:54 97.9 78 18 97 Room Air I&O- Last 24 Hours up to 6 AM 11/23/20 06:00 Intake Total 2492 ml Output Total 1600 ml Balance 892 ml Laboratory Data Labs 24H Laboratory Tests 2 11/23/20 07:59: Immature Granulocyte % (Auto) 0.5, Neutrophils (%) (Auto) 48.7, Lymphocytes (%) (Auto) 36.9, Monocytes (%) (Auto) 8.5H, Eosinophils (%) (Auto) 4.7H, Basophils (%) (Auto) 0.7, Neutrophils # (Auto) 3.0, Lymphocytes # (Auto) 2.3, Monocytes # (Auto) 0.5, Eosinophils # (Auto) 0.3, Basophils # (Auto) 0.0, Nucleated Red Blood Cells % (auto) 0.0, Anion Gap 5L, Glomerular Filtration Rate > 60.0, Calcium Level 9.1, Magnesium Level 1.9 CBC/BMP Laboratory Tests 11/23/20 07:59 Discharge Medications Scheduled Chlorthalidone (Chlorthalidone) 25 Mg Tablet, 25 MG PO DAILY, (Reported) Losartan Potassium (Losartan Potassium) 100 Mg Tablet, 100 MG PO QHS, (Reported) Nifedipine (Procardia Xl) 30 Mg Tab.er.24, 30 MG PO DAILY, (Reported) Rosuvastatin Calcium (Rosuvastatin Calcium) 10 Mg Tablet, 10 MG PO DAILY, (Reported) Spironolactone (Aldactone) 25 Mg Tablet, 12.5 MG PO DAILY Allergies Coded Allergies: No Known Allergies (Unverified , 11/20/20) GME ATTESTATION GME ATTESTATION My faculty preceptor for this patient encounter was physically present during the encounter and was fully available. All aspects of the patient interview, examination, medical decision making process, and medical care plan development were reviewed and approved by the faculty preceptor. The faculty preceptor is aware and concurs with the plan as stated in the body of this note and will attest to such by his/her cosignature. Castro Harrison DO Nov 23, 2020 11:47
[2020-11-23 12:34] VITALS: BP 158/106
== END 2020-11-23 14:26 | disposition home or self-care (01) | DRG 694 ==
LOC: M ED 16:33 → M ED INP 21:24 → M MSPAV 11-21 00:34
PROVIDERS: ADMIT Internal Medicine; ATTEND Internal Medicine
DX: N23 Unspecified renal colic (principal); N17.9 Acute kidney failure, unspecified; E87.6 Hypokalemia; E83.42 Hypomagnesemia; E78.5 Hyperlipidemia, unspecified; E26.01 Conn's syndrome; N20.0 Calculus of kidney; E66.9 Obesity, unspecified; K76.0 Fatty (change of) liver, not elsewhere classified; M54.6 Pain in thoracic spine; I16.0 Hypertensive urgency; N28.1 Cyst of kidney, acquired; Z20.822 Contact with and (suspected) exposure to COVID-19; Z79.899 Other long term (current) drug therapy; Z68.31 Body mass index [BMI] 31.0-31.9, adult